=== PATIENT | female | born 1960 | race Caucasian/White ===

== ENCOUNTER 2016-10-12 16:48 | Inpatient (IN) | payer MEDICARE ==
--- NOTE | ~2016-10-12 | HP ---
History And Physical [id number] [place]. [address] NAME: SOL KILLIAN : 64 STATUS : ADM IN [facility]#: [id number] AGE: 56 ADM/REG DATE : 10/12/16 MR#: [id number] REPORT SERV DATE: 10/13/16 DICTATED BY: STEPH DERAS DATE: 10/12/16 REPORT STATUS : Draft TRANSCRIBED BY: MODL DATE: 10/12/16 DATE OF ADMISSION: 10/12/2016 POINT OF ENTRY: [facility] Emergency Department. CHIEF COMPLAINT: Ms. Killian is a 56-year-old female with a history of COPD, not on any home oxygen as well as psoriasis and Crohn disease, who presents to the emergency department today with one to two week history of progressive worsening shortness of breath with cough, sputum production as well as wheezing. The patient states her symptoms began about a week and a half ago, primarily consists of a dry nonproductive cough as well as shortness of breath. Initially, she had some low-grade fevers as high as 101 degrees Fahrenheit; however, those have resolved and have not been present for about the last week. She started taking some Mucinex and the cough started to become productive. Her shortness of breath and wheezing have progressively worsened over the last three to four days prompting her presentation to the emergency department. Of note, when EMS arrived at her house, they found her to be hypoxemic to about 70% on room air with good response to 6 L by nasal cannula. Initial evaluation in the emergency department notable for chest x-ray that is concerning for diffuse interstitial prominence concerning for resolving pneumonia versus edema. Remainder of her labs were otherwise unremarkable. ABG was well compensated on 6 L by nasal cannula. She was subsequently admitted to the Hospitalist Service for further evaluation and management. She otherwise denies any chest pain, palpitations, abdominal pain, nausea, vomiting, diarrhea, constipation, dysuria, lower extremity edema, melena, hematochezia, or hemoptysis. Comprehensive review of systems otherwise negative unless listed in history of present illness. PREVIOUS MEDICAL HISTORY: 1. COPD, not on home oxygen. 2. Psoriasis, on Humira. 3. Hypertension. 4. Peripheral neuropathy. 5. Crohn disease complicated by colovesical fistula. SURGICAL HISTORY: 1. Ileocolonic resection. 2. Abdominal hysterectomy. 3. Cholecystectomy. 4. Appendectomy. 5. Cervical fusion. 6. Colovesical fistula repair. 7. Hernia repair. History And Physical [address] [address] NAME: SOL KILLIAN : 64 STATUS : ADM IN PAT#: [id number] AGE: 56 ADM/REG DATE : 10/12/16 MR#: [id number] REPORT SERV DATE: 10/13/16 DICTATED BY: STEPH DERAS DATE: 10/12/16 REPORT STATUS : Draft TRANSCRIBED BY: AN DATE: 10/12/16 ALLERGIES: LASIX AND MORPHINE. HOME MEDICATIONS: 1. DuoNeb one nebulization q.i.d. p.r.n. 2. Ventolin two puffs inhalation p.r.n. 3. Aspirin 81 mg daily. 4. Klonopin 0.5 mg daily. 5. Vitamin D 50,000 units weekly. 6. Lasix 20-40 mg daily p.r.n. 7. Visine tear eye drops p.r.n. 8. Roxicodone 10 mg q.4 hours p.r.n. 9. Lyrica 100 mg q.h.s. 10.Zanaflex 4 mg q.h.s. 11.Unknown blood pressure pill. 12.Vitamin B12 injections every week. 13.Humira injections every two weeks. 14.Psoriasis topical ointment. 15.Antifungal topical cream. SOCIAL HISTORY: Denies any tobacco, alcohol, or illicits. She has an extensive previous smoking history, quit about four months ago. FAMILY MEDICAL HISTORY: Mom with diabetes. Father's history is unknown. Siblings with history of asthma. LABORATORIES AND IMAGIN. White count is 6.9, hemoglobin is 13.8, hematocrit is 44.7, and platelet count is 251. 2. Sodium is 137, potassium 3.6, chloride 98, carbon dioxide 26, BUN 14, creatinine 0.85, glucose is 155, calcium is 8.8. 3. Lactic acid is 1.1. 4. Flu swab was negative. 5. Chest x-ray per Radiology report shows diffuse interstitial infiltrates as well as patchy alveolar infiltrates with a basal predominance likely representing pneumonia. 6. EKG per my review shows normal sinus rhythm with no evidence of any acute ischemia or infarction. 7. ABG; pH is 7.42, pCO2 is 30, pO2 is 69, bicarbonate is 19, saturating 93% on 6 L by nasal cannula. PHYSICAL EXAMINATION: VITAL SIGNS: Temperature is 98.5 degrees Fahrenheit, pulse is 82, respirations 23, saturating 93% on 6 L by nasal cannula, blood pressure is 112/74. On recheck, now blood pressure 135/83, heart rate of 84, and saturating 93% on 6 L by nasal cannula. GENERAL: The patient is awake, alert, in no acute distress, resting comfortably. She is a well-developed, well-nourished, female, frequently coughing. HEENT: Atraumatic and normocephalic. Moist mucous membranes. Pupils are equal, round, reactive to light and accommodation. Extraocular eye movements are intact. No scleral icterus. History And Physical [address] [address] NAME: SOL KILLIAN : 64 STATUS : ADM IN [facility]#: [id number] AGE: 56 ADM/REG DATE : 10/12/16 MR#: [id number] REPORT SERV DATE: 10/13/16 DICTATED BY: STEPH DERAS DATE: 10/12/16 REPORT STATUS : Draft TRANSCRIBED BY: AN DATE: 10/12/16 NECK: No jugular venous distention. No carotid bruits. CARDIAC: Regular rate and rhythm. No murmurs or gallops. Normal S1 and S2. LUNGS: On oxygen, but in no distress. She is frequently coughing with a wet sounding cough. Does have some diffuse mild inspiratory wheezes in all lung bradshaw, primarily on the basis as well as some rales, but no crackles or rhonchi appreciated. ABDOMEN: Obese, soft, nontender, nondistended. Good bowel sounds. No rebound, guarding, or rigidity. EXTREMITIES: Warm and well perfused. No cyanosis, clubbing, or edema. SKIN: Warm and dry. Does have evidence of diffuse psoriasis. PSYCH: Affect appropriate. NEURO: Alert and oriented x3. Cranial nerves II through XII grossly intact. Speech is normal. Gait not assessed. ASSESSMENT: The patient is a 56-year-old female, who presents with worsening cough, shortness of breath, wheezing, and chest congestion and found to have evidence of acute chronic obstructive pulmonary disease exacerbation as well as acute hypoxic respiratory failure with some concern for possible pneumonia. PROBLEM LIST: 1. Acute COPD exacerbation. 2. Acute hypoxic respiratory failure. 3. Possible pneumonia. PLAN: 1. Acute COPD exacerbation. We will treat with IV steroids, antibiotics as well as frequent bronchodilators, and pulmonary toilet. 2. Acute hypoxic respiratory failure, likely secondary to acute COPD exacerbation as well as possible pneumonia. Wean as tolerated. 3. Possible pneumonia. We will empirically place the patient on community-acquired pneumonia treatment with Rocephin and azithromycin. Checking sputum culture as well as urinary antigens. Also checking a BNP level in the event that these interstitial and patchy alveolar infiltrates may represent edema. 4. DVT prophylaxis. Lovenox subcutaneously. 5. Code status. The patient wished to be full code. JCB/MODL Steph Deras MD / [id number] CC: Norberto Juárez M.D. Lacie Diaz M.D.
--- NOTE | ~2016-10-12 | DS ---
Discharge Summary [id number] [place]. [address] NAME: SOL BLACKMAN : 64 STATUS : DIS IN PAT#: [id number] AGE: 56 ADM/REG DATE : 10/12/16 MR#: [id number] REPORT SERV DATE: 10/20/16 DICTATED BY: ARMANI SONG DATE: 10/19/16 REPORT STATUS : Draft TRANSCRIBED BY: AN DATE: 10/19/16 ADMISSION DATE: 10/12/2016 DISCHARGE DATE: 10/19/2016 DIAGNOSES: 1. Hypoxic respiratory failure. 2. Pneumonia. 3. Chronic obstructive pulmonary disease exacerbation. 4. History of Crohn's. FOLLOWUP: The patient should follow up with her primary care physician, Dr. Lacie Diaz, in one to two weeks. DISCHARGE MEDICATIONS: Levaquin 750 mg p.o. daily for three days, aspirin 81 mg p.o. daily, ergocalciferol 50,000 units p.o. q. week per home dose, Flonase one spray in each nostril b.i.d. for seven days, Lyrica 100 mg p.o. q.h.s., probiotic or Florastor one cap p.o. b.i.d., Zanaflex 4 mg p.o. q.h.s. per home dose, Klonopin 0.5 mg p.o. daily per home dose, Roxicodone 10 mg p.o. q.4 hours p.r.n. per home dose, albuterol two puffs inhaled every four hours, Visine p.r.n., DuoNeb every four hours p.r.n., furosemide 20 mg to 40 mg p.o. q. day p.r.n. edema, Symbicort 160/4.5 two puffs inhaled b.i.d. HOSPITALIST: Dr. Thaddeus Cristobal, Dr. Mike Macdonald, and Dr. Song. HOSPITAL COURSE: Please see H and P dictated by Dr. Thaddeus Cristobal. This is a 56 years old female with a past medical history of COPD and Crohn's disease, taking Humira as an outpatient, presented with a chief complaint of shortness of breath for approximately two weeks with a productive cough and fever and chills at home. She presented to the emergency department, had a chest x-ray that revealed bilateral diffuse infiltrates. She was admitted to the Hospitalist Service with hypoxic respiratory failure, COPD exacerbation, and signs of pneumonia. The patient was treated initially with IV Rocephin and azithromycin, and changed over to Levaquin. She was continued on bronchodilators and a short course of steroid, and clinically improved with treatment as well as O2 requirement improved as well. She required pulmonary toileting with incentive spirometer and flutter valve. The patient will be rechecked for need for home O2 and if needed, will be assigned and addressed by Case Management. The patient was discharged to home in stable condition to follow up as an outpatient. Also, the patient was informed to hold her Humira for now and to follow up with her prescriber after completion of her antibiotics, but to hold for now. KING/AN Armani Song M.D. / [id number] Discharge Summary [address] [address] NAME: SOL BLACKMAN : 64 STATUS : DIS IN PAT#: [id number] AGE: 56 ADM/REG DATE : 10/12/16 MR#: [id number] REPORT SERV DATE: 10/20/16 DICTATED BY: ARMANI SONG DATE: 10/19/16 REPORT STATUS : Draft TRANSCRIBED BY: AN DATE: 10/19/16 CC: Jermaine Purcell M.D.
[~2016-10-12 16:48] MED LIST: ADVAIR250 INH; B121000P IM; COREG25 PO; DUONEB INH; L40 PO; LIBRAX PO; LYRICA100 MG PO; MULTIPLE VIT PO; PERCOCET1 TA4 PO; XANAX1 MG PO; ZANAFLEX 4 MG TA4 MG PO
[2016-10-12 17:53] LABS: ALLENS TEST Pos; BE (BASE EXCESS) -4.2 MEQ/L (0 +/- 2.5); CARBOXYHEMOGLOBIN 1.8 % (0-3); HCO3 (ACTUAL BICARBONATE) 19.1 MEQ/L (23-27); HEMOBLOGIN CONTENT 14.1 G/DL (12-16); INSTRUMENT SERIAL # 8087; METHEMOGLOBIN 0.3 % (0-3); O2 CONTENT 18.1 VOL% (18-24); OPERATOR ID 14335; PCO2 (CO2 TENSION) 30 MMHG (35-45); PO2 (O2 TENSION) 69 MMHG (79-93); SAMPLE Arterial; pH 7.42 (7.37-7.43)
[2016-10-12] MEDS ORDERED: BLOOD PRESSURE RX PO (18:09)
[2016-10-12] MEDS ORDERED: KLONO5 PO (18:09)
[2016-10-12] MEDS ORDERED: VITD PO (18:10)
[2016-10-12] MEDS ORDERED: VITAMIN B-12 INJ IM (18:14)
[2016-10-12] MEDS ORDERED: HUMIRA SC (18:16)
[2016-10-12] MEDS ORDERED: VISINE TEARS15 ML OPH (18:17)
[2016-10-12] MEDS ORDERED: DUONEB INH (18:18)
[2016-10-12] MEDS ORDERED: VENTOLIN HFA INH (18:18)
[2016-10-12] MEDS ORDERED: *UNABLE1 (18:19)
[2016-10-12] MEDS ORDERED: PSORIASIS OINTMENT TOP (18:20)
[2016-10-12] MEDS ORDERED: ASAB PO (18:21)
[2016-10-12] MEDS ORDERED: [UNRECOGNIZED DRUG - REMARK] TOP (18:21)
[2016-10-12] MEDS ORDERED: LYRICA100 MG PO (18:21)
[2016-10-12] MEDS ORDERED: ZANAFLEX 4 MG TA4 MG PO (18:22)
[2016-10-12] MEDS ORDERED: OXYCOD PO (18:23)
[2016-10-12] MEDS ORDERED: L20 PO (18:23)
[2016-10-12 18:54] LABS: BASOPHILS 0.3 %; BASOPHILS ABSOLUTE 0.02 10/3/uL (0.0-0.16); EOSINOPHILS 0.1 %; EOSINOPHILS ABSOLUTE 0.01 10/3/uL (0.0-0.53); HEMATOCRIT 40.7 % (36.0-48.0); HEMOGLOBIN 13.8 g/dL (12.0-16.0); IMMATURE GRANULOCYTES 0.6 %; IMMATURE GRANULOCYTES ABSOLUTE 0.04 10/3/uL (0.0-0.11); LYMPHOCYTES 11.7 %; MEAN CORPUS HGB CONC 33.9 g/dL (32.0-36.0); MEAN CORPUSCULAR HEMOGLOB 29.4 pg (26.0-34.0); MEAN CORPUSCULAR VOLUME 86.8 fL (80-100); MEAN PLATELET VOLUME 10.5 fL (9.2-13.0); MONOCYTES 10.6 %; MONOCYTES ABSOLUTE 0.73 10/3/uL (0.21-1.20); NEUTROPHILS 76.7 %; NEUTROPHILS ABSOLUTE 5.26 10/3/uL (2.02-8.40); PLATELET COUNT 251 10/3/uL (150-400); RBC DISTRIBUTION WIDTH 14.9 % (12.0-16.0); RED CELL COUNT 4.69 10/6/uL (4.0-5.6); WHITE BLOOD CELLS 6.9 10/3/uL (4.5-10.5)
[2016-10-12 18:57] LABS: MANUAL DIFF NO %
[2016-10-12 19:05] LABS: CALCIUM, SERUM 8.8 MG/DL (8.5-10.4); CHLORIDE, SERUM 98 MMOL/L (96-112); CO2 (CARBON DIOXIDE) 26 MMOL/L (24-34); CREATININE 0.85 MG/DL (0.55-1.02); GFR AFRICAN AMERICAN 90 ML/MIN (>=60); GFR NON AFRICAN AMERICAN 78 ML/MIN (>=60); POTASSIUM, SERUM 3.6 MMOL/L (3.5-5.3); SODIUM, SERUM 137 MMOL/L (135-148)
[2016-10-12 19:09] LABS: INFLUENZA A SCREEN NEGATIVE (NEGATIVE); INFLUENZA B SCREEN NEGATIVE (NEGATIVE)
[2016-10-12 19:09] LABS: BUN (BLOOD UREA NITROGEN) 14 MG/DL (6-23); GLUCOSE, SERUM 155 MG/DL (60-99)
[2016-10-12 19:35] LABS: PROCALCITONIN 0.51 ng/mL (<0.5)
[2016-10-12 19:45] LABS: LACTATE 1.1 MMOL/L (0.3-2.4)
[2016-10-12 22:43] LABS: TROPONIN I <0.02 NG/ML (<0.05)
[2016-10-13 06:59] LABS: BASOPHILS 0.4 %; BASOPHILS ABSOLUTE 0.02 10/3/uL (0.0-0.16); EOSINOPHILS 0 %; HEMATOCRIT 38.5 % (36.0-48.0); IMMATURE GRANULOCYTES 0.6 %; IMMATURE GRANULOCYTES ABSOLUTE 0.03 10/3/uL (0.0-0.11); LYMPHOCYTES 17.2 %; LYMPHOCYTES ABSOLUTE 0.91 10/3/uL (0.67-4.30); MEAN CORPUS HGB CONC 33.8 g/dL (32.0-36.0); MEAN CORPUSCULAR HEMOGLOB 29.9 pg (26.0-34.0); MEAN CORPUSCULAR VOLUME 88.5 fL (80-100); MEAN PLATELET VOLUME 10.6 fL (9.2-13.0); MONOCYTES 7.2 %; MONOCYTES ABSOLUTE 0.38 10/3/uL (0.21-1.20); NEUTROPHILS 74.6 %; NEUTROPHILS ABSOLUTE 3.96 10/3/uL (2.02-8.40); PLATELET COUNT 223 10/3/uL (150-400); RBC DISTRIBUTION WIDTH 14.7 % (12.0-16.0); RED CELL COUNT 4.35 10/6/uL (4.0-5.6); WHITE BLOOD CELLS 5.3 10/3/uL (4.5-10.5)
[2016-10-13 07:00] LABS: MANUAL DIFF NO %
[2016-10-13 07:08] LABS: BUN (BLOOD UREA NITROGEN) 16 MG/DL (6-23); CALCIUM, SERUM 8.9 MG/DL (8.5-10.4); CHLORIDE, SERUM 101 MMOL/L (96-112); CO2 (CARBON DIOXIDE) 26 MMOL/L (24-34); CREATININE 0.65 MG/DL (0.55-1.02); GFR AFRICAN AMERICAN 117 ML/MIN (>=60); GFR NON AFRICAN AMERICAN 101 ML/MIN (>=60); GLUCOSE, SERUM 173 MG/DL (60-99); POTASSIUM, SERUM 3.7 MMOL/L (3.5-5.3); SODIUM, SERUM 140 MMOL/L (135-148)
[2016-10-13 12:29] LABS: ASCORBIC ACID (UR NOT ORDER) NEG (NEG); BILIRUBIN, URINE NEGATIVE (NEG); KETONE, URINE NEGATIVE (NEG); LEUKOCYTE ESTERASE(NOT OR NEG (NEG); WBC (NOT ORDERED) (RFLEX) 1 (0-5)
[2016-10-14 05:42] LABS: BASOPHILS 0.2 %; BASOPHILS ABSOLUTE 0.02 10/3/uL (0.0-0.16); EOSINOPHILS 0 %; HEMATOCRIT 39.6 % (36.0-48.0); HEMOGLOBIN 13.2 g/dL (12.0-16.0); IMMATURE GRANULOCYTES 0.9 %; IMMATURE GRANULOCYTES ABSOLUTE 0.09 10/3/uL (0.0-0.11); LYMPHOCYTES 13.8 %; MEAN CORPUS HGB CONC 33.3 g/dL (32.0-36.0); MEAN CORPUSCULAR HEMOGLOB 29.9 pg (26.0-34.0); MEAN CORPUSCULAR VOLUME 89.6 fL (80-100); MEAN PLATELET VOLUME 10.6 fL (9.2-13.0); MONOCYTES 12.1 %; MONOCYTES ABSOLUTE 1.23 10/3/uL (0.21-1.20); NEUTROPHILS ABSOLUTE 7.41 10/3/uL (2.02-8.40); PLATELET COUNT 283 10/3/uL (150-400); RBC DISTRIBUTION WIDTH 14.9 % (12.0-16.0); RED CELL COUNT 4.42 10/6/uL (4.0-5.6)
[2016-10-14 05:47] LABS: MANUAL DIFF NO %; WHITE BLOOD CELLS 10.2 10/3/uL (4.5-10.5)
[2016-10-14 05:58] LABS: CALCIUM, SERUM 9.4 MG/DL (8.5-10.4); CHLORIDE, SERUM 102 MMOL/L (96-112); CO2 (CARBON DIOXIDE) 28 MMOL/L (24-34); CREATININE 0.71 MG/DL (0.55-1.02); GFR AFRICAN AMERICAN 112 ML/MIN (>=60); GFR NON AFRICAN AMERICAN 97 ML/MIN (>=60); PHOSPHORUS, SERUM 3.4 MG/DL (2.5-4.5); POTASSIUM, SERUM 3.3 MMOL/L (3.5-5.3); SODIUM, SERUM 140 MMOL/L (135-148)
[2016-10-14 06:01] LABS: BUN (BLOOD UREA NITROGEN) 21 MG/DL (6-23); GLUCOSE, SERUM 135 MG/DL (60-99)
[2016-10-15 06:45] LABS: BASOPHILS 0.3 %; BASOPHILS ABSOLUTE 0.03 10/3/uL (0.0-0.16); EOSINOPHILS 0 %; HEMATOCRIT 39.8 % (36.0-48.0); HEMOGLOBIN 13.4 g/dL (12.0-16.0); IMMATURE GRANULOCYTES 1.8 %; IMMATURE GRANULOCYTES ABSOLUTE 0.17 10/3/uL (0.0-0.11); LYMPHOCYTES 21.6 %; LYMPHOCYTES ABSOLUTE 2.05 10/3/uL (0.67-4.30); MEAN CORPUS HGB CONC 33.7 g/dL (32.0-36.0); MEAN CORPUSCULAR VOLUME 89.2 fL (80-100); MEAN PLATELET VOLUME 10.3 fL (9.2-13.0); MONOCYTES 12.4 %; MONOCYTES ABSOLUTE 1.18 10/3/uL (0.21-1.20); NEUTROPHILS 63.9 %; NEUTROPHILS ABSOLUTE 6.05 10/3/uL (2.02-8.40); PLATELET COUNT 314 10/3/uL (150-400); RBC DISTRIBUTION WIDTH 14.8 % (12.0-16.0); RED CELL COUNT 4.46 10/6/uL (4.0-5.6); WHITE BLOOD CELLS 9.5 10/3/uL (4.5-10.5)
[2016-10-15 06:47] LABS: MANUAL DIFF NO %
[2016-10-15 08:04] LABS: CALCIUM, SERUM 9.4 MG/DL (8.5-10.4); CHLORIDE, SERUM 100 MMOL/L (96-112); CO2 (CARBON DIOXIDE) 30 MMOL/L (24-34); GFR AFRICAN AMERICAN 120 ML/MIN (>=60); GFR NON AFRICAN AMERICAN 103 ML/MIN (>=60); GLUCOSE, SERUM 108 MG/DL (60-99); PHOSPHORUS, SERUM 3.8 MG/DL (2.5-4.5); POTASSIUM, SERUM 4.1 MMOL/L (3.5-5.3); SODIUM, SERUM 139 MMOL/L (135-148)
[2016-10-15 08:05] LABS: BUN (BLOOD UREA NITROGEN) 15 MG/DL (6-23)
[2016-10-15 09:16] LABS: PROCALCITONIN 0.05 ng/mL (<0.5)
[2016-10-16 06:22] LABS: BASOPHILS 0.3 %; BASOPHILS ABSOLUTE 0.03 10/3/uL (0.0-0.16); EOSINOPHILS 0 %; HEMATOCRIT 39.9 % (36.0-48.0); HEMOGLOBIN 13.3 g/dL (12.0-16.0); IMMATURE GRANULOCYTES 2.5 %; IMMATURE GRANULOCYTES ABSOLUTE 0.23 10/3/uL (0.0-0.11); LYMPHOCYTES 26.6 %; LYMPHOCYTES ABSOLUTE 2.43 10/3/uL (0.67-4.30); MANUAL DIFF NO %; MEAN CORPUS HGB CONC 33.3 g/dL (32.0-36.0); MEAN CORPUSCULAR HEMOGLOB 30.1 pg (26.0-34.0); MEAN CORPUSCULAR VOLUME 90.3 fL (80-100); MEAN PLATELET VOLUME 10.4 fL (9.2-13.0); MONOCYTES 10.3 %; MONOCYTES ABSOLUTE 0.94 10/3/uL (0.21-1.20); NEUTROPHILS 60.3 %; NEUTROPHILS ABSOLUTE 5.52 10/3/uL (2.02-8.40); PLATELET COUNT 283 10/3/uL (150-400); RBC DISTRIBUTION WIDTH 14.6 % (12.0-16.0); RED CELL COUNT 4.42 10/6/uL (4.0-5.6); WHITE BLOOD CELLS 9.2 10/3/uL (4.5-10.5)
[2016-10-16 06:30] LABS: BUN (BLOOD UREA NITROGEN) 15 MG/DL (6-23); CALCIUM, SERUM 9.3 MG/DL (8.5-10.4); CHLORIDE, SERUM 97 MMOL/L (96-112); CO2 (CARBON DIOXIDE) 33 MMOL/L (24-34); CREATININE 0.69 MG/DL (0.55-1.02); GFR AFRICAN AMERICAN 114 ML/MIN (>=60); GFR NON AFRICAN AMERICAN 99 ML/MIN (>=60); PHOSPHORUS, SERUM 3.4 MG/DL (2.5-4.5); POTASSIUM, SERUM 3.7 MMOL/L (3.5-5.3); SODIUM, SERUM 139 MMOL/L (135-148)
[2016-10-16 06:33] LABS: GLUCOSE, SERUM 130 MG/DL (60-99)
[2016-10-17 06:53] LABS: BASOPHILS 0.2 %; BASOPHILS ABSOLUTE 0.02 10/3/uL (0.0-0.16); EOSINOPHILS 0.2 %; EOSINOPHILS ABSOLUTE 0.02 10/3/uL (0.0-0.53); HEMOGLOBIN 13.6 g/dL (12.0-16.0); IMMATURE GRANULOCYTES 2.8 %; IMMATURE GRANULOCYTES ABSOLUTE 0.25 10/3/uL (0.0-0.11); LYMPHOCYTES 28.3 %; LYMPHOCYTES ABSOLUTE 2.54 10/3/uL (0.67-4.30); MANUAL DIFF NO %; MEAN CORPUS HGB CONC 33.2 g/dL (32.0-36.0); MEAN CORPUSCULAR VOLUME 90.5 fL (80-100); MEAN PLATELET VOLUME 10.3 fL (9.2-13.0); MONOCYTES 8.5 %; MONOCYTES ABSOLUTE 0.76 10/3/uL (0.21-1.20); NEUTROPHILS ABSOLUTE 5.38 10/3/uL (2.02-8.40); PLATELET COUNT 309 10/3/uL (150-400); RBC DISTRIBUTION WIDTH 14.7 % (12.0-16.0); RED CELL COUNT 4.53 10/6/uL (4.0-5.6)
[2016-10-17 07:07] LABS: BUN (BLOOD UREA NITROGEN) 15 MG/DL (6-23); CALCIUM, SERUM 8.9 MG/DL (8.5-10.4); CHLORIDE, SERUM 100 MMOL/L (96-112); CO2 (CARBON DIOXIDE) 32 MMOL/L (24-34); CREATININE 0.72 MG/DL (0.55-1.02); GFR AFRICAN AMERICAN 110 ML/MIN (>=60); GFR NON AFRICAN AMERICAN 95 ML/MIN (>=60); GLUCOSE, SERUM 118 MG/DL (60-99); PHOSPHORUS, SERUM 3.6 MG/DL (2.5-4.5); POTASSIUM, SERUM 3.8 MMOL/L (3.5-5.3); SODIUM, SERUM 141 MMOL/L (135-148)
[2016-10-18 06:50] LABS: HEMATOCRIT 40.2 % (36.0-48.0); HEMOGLOBIN 13.4 g/dL (12.0-16.0); MEAN CORPUS HGB CONC 33.3 g/dL (32.0-36.0); MEAN CORPUSCULAR HEMOGLOB 29.1 pg (26.0-34.0); MEAN PLATELET VOLUME 10.4 fL (9.2-13.0); PLATELET COUNT 297 10/3/uL (150-400); RBC DISTRIBUTION WIDTH 14.9 % (12.0-16.0); WHITE BLOOD CELLS 8.7 10/3/uL (4.5-10.5)
[2016-10-18 06:55] LABS: MANUAL DIFF YES %; MEAN CORPUSCULAR VOLUME 87.4 fL (80-100)
[2016-10-18 07:03] LABS: BUN (BLOOD UREA NITROGEN) 17 MG/DL (6-23); CALCIUM, SERUM 9.2 MG/DL (8.5-10.4); CHLORIDE, SERUM 96 MMOL/L (96-112); CO2 (CARBON DIOXIDE) 34 MMOL/L (24-34); CREATININE 0.74 MG/DL (0.55-1.02); GFR AFRICAN AMERICAN 106 ML/MIN (>=60); GFR NON AFRICAN AMERICAN 92 ML/MIN (>=60); GLUCOSE, SERUM 108 MG/DL (60-99); PHOSPHORUS, SERUM 3.6 MG/DL (2.5-4.5); POTASSIUM, SERUM 3.9 MMOL/L (3.5-5.3); SODIUM, SERUM 139 MMOL/L (135-148)
[2016-10-18 07:26] LABS: BAND NEUTROPHILS 2 %; IMMATURE GRANS ABSOLUTE (CALC) 0.17 10/3/uL (0.0-0.11); LYMPHOCYTES 32 %; LYMPHOCYTES ABSOLUTE (CALC) 2.78 10/3/uL (0.67-4.30); METAMYELOCYTES 2 %; MONOCYTES 10 %; MONOCYTES ABSOLUTE (CALC) 0.87 10/3/uL (0.21-1.20); NEUTROPHILS ABSOLUTE (CALC) 4.87 10/3/uL (2.02-8.40); SEGMENTED NEUTROPHIL (0) 54 %; TOTAL NUCLEATED CELLS 100
[2016-10-18 07:27] LABS: PLATELET ESTIMATE ADQ (ADEQUATE); RBC MORPHOLOGY NORM (NORMAL)
[2016-10-19] MEDS ORDERED: FLONASE NAS (13:34)
[2016-10-19] MEDS ORDERED: LEVAQUIN750 MG PO (13:35)
[2016-10-19] MEDS ORDERED: FLORASTOR250 MG PO (13:36)
[2016-10-19] MEDS ORDERED: SYMBICORT 160/41 INH INH (13:41)
== END 2016-10-19 16:12 | disposition home health service (06) | DRG 189 ==
LOC: ER 16:48 → 7NO 20:56
PROVIDERS: Emergency Medicine; Internal Medicine
DX: J96.01 Acute respiratory failure with hypoxia (principal); J18.9 Pneumonia, unspecified organism; J44.0 Chronic obstructive pulmonary disease with (acute) lower respiratory infection; J44.1 Chronic obstructive pulmonary disease with (acute) exacerbation; K50.90 Crohn's disease, unspecified, without complications; Z90.49 Acquired absence of other specified parts of digestive tract; Z90.710 Acquired absence of both cervix and uterus; Z79.82 Long term (current) use of aspirin
CPT/HCPCS: 36600; 71010; 71020; 74176; 80048; 81001; 82805; 83605; 83735; 83880; 84100; 84132; 84145; 84484; 85025; 87040; 87449; 87804; 93005; 93306; 93970; 94640; 94667; 94668; 96374; 96375; 97116-GP; 97161-GP; 99285; A9270-GY; G8978-CJ-GP; G8979-CJ-GP; G8980-CJ-GP; J0456; J2405; J2930; Q9967